=== PATIENT | female | born 1995 | race Hispanic/Latino ===

== ENCOUNTER 2019-09-20 09:38 | Emergency (ER) | payer OTHER ==
[~2019-09-20] VITALS: Ht 160 cm; Wt 79.9 kg
[2019-09-20 09:39] VITALS: BP 138/79
[2019-09-20] MEDS ORDERED: ALL10TAB29 PO (10:10)
[2019-09-20] MEDS ORDERED: FLON1SPR NARES (10:10)
== END 2019-09-20 10:33 | disposition home or self-care (01) ==
LOC: M ED 09:38
DX: J02.9 Acute pharyngitis, unspecified (principal); R06.02 Shortness of breath; F17.218 Nicotine dependence, cigarettes, with other nicotine-induced disorders

== ENCOUNTER 2019-10-07 11:36 | Emergency (ER) | payer OTHER ==
[~2019-10-07] VITALS: Ht 160 cm; Wt 73.9 kg
[~2019-10-07 11:36] MED LIST: CETI-24 PO; FLON1SPR NARES
[2019-10-07 12:41] LABS: ALBUMIN 4.3 GM/DL (3.2-5.2); BILIRUBIN,DIRECT 0.1 MG/DL (0.0-0.2); BILIRUBIN,TOTAL 0.5 MG/DL (0.2-1.0); TOTAL PROTEIN 8.5 GM/DL (6.4-8.2)
[2019-10-07 14:06] LABS: CHLAMYDIA DNA AMPLIFICATION POSITIVE (NEGATIVE); GC DNA AMPLIFICATION NEGATIVE (NEGATIVE)
[2019-10-07] MEDS ORDERED: AZITHROMYCIN 250MG TABLET PO ONE (14:45)
[2019-10-07 14:49] VITALS: BP 135/83
--- NOTE | 2019-10-07 16:13 | REP ---
PELVIC ULTRASOUND: Real-time sonographic evaluation of the pelvis is performed utilizing transabdominal and endovaginal technique. The bladder measures 2.7 x 2.6 x 6.5 cm. The uterus measures 8.0 x 2.7 x 3.8 cm. Endometrial thickness is 6 mm. The right ovary measures 3.3 x 3.5 x 3.3 cm. Left ovary 2.8 x 2.2 x 1.6 cm. Simple cyst in the right ovary measures 2.9 x 2.6 x 2.5 cm. There is no evidence of ovarian torsion with duplex Doppler evaluation. No free fluid is seen. IMPRESSION: Simple cyst right ovary 2.9 cm. No torsion or free fluid. Electronically Signed by Selvin Henry MD 10/08/2019 11:27 A
== END 2019-10-07 14:55 | disposition home or self-care (01) ==
LOC: M ED 11:36
DX: A74.9 Chlamydial infection, unspecified (principal); F17.200 Nicotine dependence, unspecified, uncomplicated; N83.291 Other ovarian cyst, right side